=== PATIENT | female | born 1945 | race Caucasian/White ===

== ENCOUNTER 2017-02-22 14:48 | Emergency (ER) | payer MEDICARE, BC ==
[~2017-02-22] VITALS: Ht 167.6 cm; Wt 50.0 kg
[2017-02-22 14:52] VITALS: TEMP 96.9
[2017-02-22] MEDS ORDERED: K-DUR 10 MEQ T10 MEQ PO (15:01)
[2017-02-22] MEDS ORDERED: FENTANYL 75MCG TD (15:01)
[2017-02-22] MEDS ORDERED: SEROQUEL 2525 MG/TAB PO (15:02)
[2017-02-22] MEDS ORDERED: TOPROL XL 25MG25 MG PO (15:03)
[2017-02-22] MEDS ORDERED: ASPIRIN E.C. 8181 MG PO (15:03)
[2017-02-22] MEDS ORDERED: IMDUR 60MG60 MG/TAB PO (15:10)
[2017-02-22] MEDS ORDERED: LASIX 20MG TABL20 MG PO (15:11)
[2017-02-22 16:33] LABS: BASO # 0.1 (0.0-0.2); BASO % 0.7 % (0.0-2.0); EOS # 0.1 (0.0-0.7); EOS % 1.5 % (0-4.0); GRAN # 5.5 (1.4-6.5); GRAN % 79.6 % (42.2-75.2); HEMATOCRIT 39.6 % (37.0-47.0); HEMOGLOBIN 13.5 g/dl (12.5-16.0); LYMPH # 0.8 (1.2-3.4); LYMPH % 11.8 % (20.0-51.0); MEAN CELL VOLUME 98 fl (80.0-100.0); MEAN CORPUSCULAR HEMOGLOBIN 33 pg (27.0-31.0); MEAN CORPUSCULAR HGB CONC 34 g/dl (33.0-37.0); MEAN PLATELET VOLUME 10.3 fl (7.4-10.4); MONO # 0.4 (0.1-0.6); PLATELET COUNT 158 K/mm3 (130-400); RED BLOOD COUNT 4.05 M/mm3 (4.10-5.30); REDCELL DISTRIBUTION WIDTH-CV 11.8 % (11.5-14.5); WHITE BLOOD COUNT 6.9 K/mm3 (4.8-10.8)
[2017-02-22 16:44] LABS: ADJUSTED CALCIUM 9.6 mg/dL (8.4-10.2); ALBUMIN 3.8 gm/dL (3.5-5.0); BILIRUBIN,TOTAL 0.8 mg/dL (0.0-1.0); CALCIUM 9.4 mg/dL (8.4-10.2); CREATININE, serum 1.08 mg/dL (0.52-1.25); POTASSIUM 3.8 mmol/L (3.4-5.0); TOTAL PROTEIN 6.7 gm/dL (6.4-8.2)
[2017-02-22 16:50] LABS: INR 1.1 (0.8-3.0); PROTHROMBIN TIME 12.1 SECONDS (9.7-12.8)
[2017-02-22 17:01] LABS: PROLACTIN 14.2 ng/mL (3.0-18.6)
[2017-02-22 17:41] VITALS: BP 138/74; PULSE 83
[2017-02-22 17:55] LABS: PH 5 (5-8); SQUAMOUS EPITHELIAL 0-2 /hpf; URINE APPEARANCE Hazy; URINE BACTERIA None Seen /hpf; URINE BILIRUBIN Negative (NEGATIVE); URINE BLOOD Negative (NEGATIVE); URINE COLOR Amber; URINE GLUCOSE Negative (NEGATIVE); URINE KETONE Negative (NEGATIVE); URINE RBC 0-2 /hpf; URINE UROBILINOGEN Negative (NEGATIVE); URINE WBC 0-2 /hpf
== END 2017-02-22 18:36 | disposition home or self-care (01) ==
LOC: COL.ER 14:48
PROVIDERS: Emergency Medicine
DX: G40.909 Epilepsy, unspecified, not intractable, without status epilepticus (principal); I25.10 Atherosclerotic heart disease of native coronary artery without angina pectoris; I11.0 Hypertensive heart disease with heart failure; F17.210 Nicotine dependence, cigarettes, uncomplicated; I25.2 Old myocardial infarction; I50.9 Heart failure, unspecified; Z86.73 Personal history of transient ischemic attack (TIA), and cerebral infarction without residual deficits; Z51.5 Encounter for palliative care

== ENCOUNTER → 2017-02-28 | Outpatient (REF) ==
[~2017-02-28] MED LIST: ASPIRIN E.C. 8181 MG PO; FENTANYL 75MCG TD; IMDUR 60MG60 MG/TAB PO; K-DUR 10 MEQ T10 MEQ PO; LASIX 20MG TABL20 MG PO; SEROQUEL 2525 MG/TAB PO; TOPROL XL 25MG25 MG PO
== END ==
LOC: ZLAB.WCH 18:08
DX: Z01.89 Encounter for other specified special examinations (principal)